=== PATIENT | male | born 1960 | race Caucasian/White ===

== ENCOUNTER → 2017-03-17 | Outpatient (CLI) | payer BC | END | disposition home or self-care (01) | LOC: ECHO 07:14 | DX: I25.10 Atherosclerotic heart disease of native coronary artery without angina pectoris (principal); I35.0 Nonrheumatic aortic (valve) stenosis | CPT/HCPCS: 93306 ==

== ENCOUNTER → 2017-03-17 | Outpatient (CLI) | payer BC ==
[2017-03-17 07:35] LABS: ADD MAN DIFF? NO
[2017-03-17 07:39] LABS: BASO # 0.1 x10^3/uL (0.0-0.2); BASO % 1 % (0-3); EOS # 0.2 x10^3/uL (0.0-0.7); EOS % 4 % (0-3); HEMATOCRIT 44.3 % (39.0-53.0); LYMPH % 32 % (24-48); MEAN CORPUSCULAR HEMOGLOBIN 31 pg (25-35); MEAN CORPUSCULAR HGB CONC 34 g/dL (31-37); MEAN CORPUSCULAR VOLUME 91 fL (79-100); MONO # 0.6 x10^3/uL (0.0-1.1); MONO % 10 % (0-9); NEUT # 3.4 x10^3uL (1.8-7.7); NEUT % 53 % (31-73); PLATELET COUNT 247 x10^3/uL (140-400); RED BLOOD COUNT 4.88 x10^6/uL (4.30-5.70); RED CELL DISTRIBUTION WIDTH 14.2 % (11.5-14.5); WHITE BLOOD COUNT 6.3 x10^3/uL (4.0-11.0)
[2017-03-17 08:00] LABS: ALBUMIN 4.1 g/dL (3.4-5.0); ALBUMIN/GLOBULIN RATIO 1.1 (1.0-1.7); ALK PHOS 149 U/L (46-116); ALT (SGPT) 51 U/L (16-63); ANION GAP 7 (6-14); AST (SGOT) 21 U/L (15-37); BLOOD UREA NITROGEN 16 mg/dL (8-26); BUN/CREATININE RATIO 15 (6-20); CALCIUM 9.1 mg/dL (8.5-10.1); CARBON DIOXIDE 31 mmol/L (21-32); CHLORIDE 105 mmol/L (98-107); CHOLESTEROL 123 mg/dL (0-200); CREATININE 1.1 mg/dL (0.7-1.3); GFR 68.8; GLUCOSE 102 mg/dL (70-99); HDLC 30 mg/dL (40-60); LDLC 62 mg/dL (0-100); NON-HDL CHOLESTEROL 93 mg/dL (0-129); POTASSIUM 3.9 mmol/L (3.5-5.1); SODIUM 143 mmol/L (136-145); TOTAL BILIRUBIN 0.5 mg/dL (0.2-1.0); TOTAL PROTEIN 7.8 g/dL (6.4-8.2); TRIGLYCERIDES 155 mg/dL (0-150); VLDLC 31 mg/dL (0-40)
[2017-03-17 08:02] LABS: CHOLESTEROL/HDL RATIO 4.1
[2017-03-17 09:52] LABS: PROSTATE SPECIFIC ANTIGEN 0.26 ng/mL (0.00-4.00)
== END | disposition home or self-care (01) ==
LOC: LAB 07:18
DX: Z12.5 Encounter for screening for malignant neoplasm of prostate (principal); I10 Essential (primary) hypertension; E78.5 Hyperlipidemia, unspecified
CPT/HCPCS: 36415; 80053; 80061; 85025; G0103

== ENCOUNTER → 2018-02-05 | Day surgery (SDC) | payer BC ==
[~2018-02-05] MED LIST: ASPI-630 PO; ATOR40TA59 PO; HYDROmorphone 2 MG/ML VIAL IV PRN; LIDOCAINE 1% PF 2 ML VIAL. ID PRN; MORPHINE SULFATE 4 MG/ML VIAL. IV PRN; ONDANSETRON PF 4 MG/2 ML VIAL. IV PRN; PANT20TA2 PO; PROCHLORPERAZINE 10 MG/2 ML VIAL. IV PRN; PROPOFOL 20 ML IV ONE; fentaNYL PF VIAL 100 MCG/2 ML VIAL IV PRN
[2018-02-05] MEDS: IV RINGERS,LACTATED 1000ML 1,000 ML IV SCH ×2 (12:05→12:08)
[2018-02-05 13:27] VITALS: BP 108/73
--- NOTE | 2018-02-06 16:08 | PATHOLOGY ---
[facility] Accession Number: [id number] . 01 Material submitted: . RECTAL POLYP . 01 Clinical history: . Rectal bleeding Polyp . 02 Diagnosis: Colorectal biopsy, rectal polyp: - Tubular adenoma. [facility]/02/06/2018 . 02 Comment: There is no high-grade dysplasia or evidence of malignancy. (JPM:[facility] 02/06/2018) . 02 Electronically signed: . Jeff Leahy MD, Pathologist NPI- [id number] . 01 Gross description: . The specimen is received in formalin, labeled "Brown, Cristian, rectal polyp" and consists of a polypoid segment of pink-gilman tissue measuring 0.8 x 0.5 x 0.3 cm. The margin is inked black. It is bisected and entirely submitted in A1. (SDY; 02/05/2018) SYU/SYU . 02 Pathologist provided ICD-10: D12.8 . 02 CPT . 629540 Specimen Comment: A courtesy copy of this report has been sent to Specimen Comment: [phone], . Specimen Comment: Report sent to and Performed at: 01 [facility] [address], [place] [id number] MD Lio Dejesus MD Phone: [phone] Performed at: 02 [facility] [address], [place] [id number] MD Jeff Leahy MD Phone: [phone]
== END | disposition home or self-care (01) ==
LOC: ENDOS 11:23
PROVIDERS: ATTEND Internal Medicine Gastroenterology
DX: D12.8 Benign neoplasm of rectum (principal); K57.30 Diverticulosis of large intestine without perforation or abscess without bleeding; K64.0 First degree hemorrhoids; K21.9 Gastro-esophageal reflux disease without esophagitis; E78.00 Pure hypercholesterolemia, unspecified; I25.2 Old myocardial infarction; Z95.5 Presence of coronary angioplasty implant and graft; Z72.89 Other problems related to lifestyle; Z79.82 Long term (current) use of aspirin; Z79.899 Other long term (current) drug therapy; Z98.52 Vasectomy status
CPT/HCPCS: 45385; 88305; J2704; 45380

== ENCOUNTER → 2018-09-11 | Outpatient (CLI) | payer BC, OTHER ==
[2018-02-05 13:27] VITALS: BP 108/73
[~2018-09-11] MED LIST changes: -HYDROmorphone 2 MG/ML VIAL IV PRN; -LIDOCAINE 1% PF 2 ML VIAL. ID PRN; -MORPHINE SULFATE 4 MG/ML VIAL. IV PRN; -ONDANSETRON PF 4 MG/2 ML VIAL. IV PRN; -PROCHLORPERAZINE 10 MG/2 ML VIAL. IV PRN; -PROPOFOL 20 ML IV ONE; -fentaNYL PF VIAL 100 MCG/2 ML VIAL IV PRN
--- NOTE | 2018-09-11 13:10 | RAD ---
Chest CT without contrast Clinical indications: Fall onto metal trash can. Right-sided rib pain. TECHNIQUE: Noncontrast helical CT scanning of the chest was performed. Without contrast, the sensitivity to detect organ pathology is decreased. PQRS compliance Statement One or more of the following individualized dose reduction techniques were utilized for this study: 1. Automated exposure control 2. Adjustment of the mA and/or kV according to patient size 3. Use of iterative reconstruction technique COMPARISON: No previous chest CT. FINDINGS: No focal aneurysmal dilatation of the thoracic aorta is seen. 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 The heart size is normal and no pericardial effusion is seen. Calcified granulomatous lymph nodes of the mediastinum are seen. No enlarged thoracic lymphadenopathy is evident. No pleural effusion or pneumothorax is seen. Calcified granuloma of the posterior left lower lobe is seen. There is a calcified granuloma of the posterior right upper lobe. No lung mass or lung consolidation is seen. The proximal bronchial tree is patent. No lytic process is evident. No rib fracture is seen. No compression deformity of the thoracic spine is seen. No adrenal mass is evident. There is hypodense area within the posterior segment of the right lobe liver. This corresponds to prominent hemangioma seen on a CT study of the abdomen dated 03/22/2011. IMPRESSION: No acute abnormality is evident. 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 Hemangioma of the liver. Electronically signed by: Bill Bolton MD (09/11/2018 1:07 PM) [facility]
== END | disposition home or self-care (01) ==
LOC: CT 12:24
PROVIDERS: ATTEND Family Medicine
DX: S20.211A Contusion of right front wall of thorax, initial encounter (principal); I25.10 Atherosclerotic heart disease of native coronary artery without angina pectoris; J98.59 Other diseases of mediastinum, not elsewhere classified; D18.03 Hemangioma of intra-abdominal structures; J84.10 Pulmonary fibrosis, unspecified; W19.XXXA Unspecified fall, initial encounter; W20.8XXA Other cause of strike by thrown, projected or falling object, initial encounter
CPT/HCPCS: 71250